=== PATIENT | female | born 1960 ===

== ENCOUNTER 2016-10-19 06:00 | Inpatient (IN) ==
--- NOTE | 2016-10-05 13:21 | EKG Report ---
Stationary ECG Study [facility] Test Date: 10/05/2016 1:20:10 PM Pat Name: RUBI TELLES Department: Room: Gender: F Lawn Caretaker: KRISHAN 10/19/16 SINDHU : 1960 Requested by: Calvin Nixon Order Number: [id number] Reading MD: TEO VALADEZ Intervals [place] Rate: 72 P: 59 TN: 147 QRS: 28 QRSD: 97 T: 59 QT: 387 QTc: 411 Interpretive Statements SINUS RHYTHM Electronically Signed On 10-06-16 14:10:17 CDT by TEO VALADEZ [email or web address]
[~2016-10-19 06:00] MED LIST: LEVOFLOXACIN INJ 100 ML IV ONE
[2016-10-19] MEDS ORDERED: DIAZEPAM 5 MG TABLET ONE (06:34)
[2016-10-19] MEDS ORDERED: FAMOTIDINE 20 MG TABLET ONE (06:34)
[2016-10-19] MEDS ORDERED: DIAZEPAM 5 MG TABLET PO STA (06:36)
[2016-10-19] MEDS ORDERED: FAMOTIDINE 20 MG TABLET PO STA (06:37)
[2016-10-19] MEDS: LACTATED RINGERS 1,000 ML IV SCH (06:53)
[2016-10-19] MEDS ORDERED: ROCURONIUM 100 MG/10 ML VIAL IV ONE (07:11)
[2016-10-19] MEDS ORDERED: ONDANSETRON 4 MG/2 ML VIAL ONE ×2 (07:11→11:06)
[2016-10-19] MEDS ORDERED: LIDOCAINE 2% 5 ML VIAL ONE (07:11)
[2016-10-19] MEDS ORDERED: DEXAMETHASONE 4 MG/1 ML VIAL ONE (07:11)
[2016-10-19] MEDS ORDERED: KETOROLAC 30 MG/1 ML VIAL ONE (07:11)
[2016-10-19] MEDS ORDERED: PROPOFOL 200 MG/20 ML VIAL IV ONE (07:11)
[2016-10-19] MEDS ORDERED: PHENYLEPHRINE 1 MG/10 ML SYRINGE IV ONE (07:11)
[2016-10-19] MEDS ORDERED: BACITRACIN 50,000 UNIT VIAL ONE (09:14)
[2016-10-19] MEDS ORDERED: POLYMYXIN B 500,000 UNIT VIAL ONE (09:14)
--- NOTE | 2016-10-19 10:27 | Operative Note ---
Date of procedure: 10/19/16 Procedure: Preoperative diagnosis: Absent left breast Postoperative diagnosis: Same Procedure: Left breast reconstruction with transverse rectus abdominis muscle flap Surgeon: Andrew Graphic Artist: Dr. David Lincoln Blood loss: 100 cc Anesthesia: General Disposition: Recovery room History of present illness: 56-year-old female with absent left breast secondary to breast cancer. She comes in for definitive reconstruction. Procedure detail: The patient underwent preoperative marking and consent. She was taken to the operating room and underwent general anesthesia. She was prepped and draped in a sterile fashion. Initially a large elliptical incision was made on her lower abdomen including a periumbilical incision. The left side of the abdominal incision area was elevated at the level of the fascia to just cross the midline. The right side of the incision area was elevated to the lateral border of the rectus sheath. A large portion of the elevated tissue was discarded leaving zone 1 of the TRAM flap. The patient then underwent elevation of an upper abdominal skin flap to the level of the xiphoid and costal margin. A rectus muscle fascia incision was made and the rectus muscle was dissected free from the right rectus sheath and the distal end of the rectus muscle was transected. A tunnel was made using electrocautery from the abdominal incision up into the area of the left breast. A large portion of the inferior breast skin was removed. Leaving a large elliptical defect. The tunnel was completed to the left breast. The TRAM flap was then gently moved into the breast position being careful not to kink the pedicle. The flap was trimmed appropriately and inset with a deep layer of 3-0 Monocryl and the skin was closed with a 3-0 Monocryl particular suture. And a drain was placed prior to closure. The drain was secured to the skin with 3-0 nylon suture. The patient was then placed in a sitting position. The rectus sheath was closed with a #2 PDS suture and the inferior portion of the rectus was repaired with a piece of Stratus mesh. The mesh was inset with #2 PDS and the lower right rectus sheath. 2 abdominal drains were placed and secured to the skin with 3-0 nylon suture. Her lower abdominal incision was closed with a deep layer of 2-0 PDS and the skin was closed with a subcuticular 3-0 Monocryl suture. Supporting karen were also placed due to the tightness of the incision. All drains were placed to suction. A small incision was made for exit of the umbilicus. The umbilicus was brought through and secured with a deep layer of 3 -0 Monocryl in the skin of the umbilicus was inset with 4-0 chromic suture. The patient was placed in sterile dressings on her disposition was to the recovery room in stable condition. Surgeon / Physician: Alcides Morales Discharge Plan - Discharge Medications No Action Tamoxifen Tab [Nolvadex] 20 mg PO DAILY Omeprazole 20 mg PO DAILY Glyburide/Metformin HCl [Glyburide-Metformin 2.5-500 mg] 1 each PO BID Carvedilol 12.5 mg PO BID Chlorthalidone 25 mg PO DAILY - Follow Up or Referral - Forms/Instructions
[2016-10-19] MEDS ORDERED: HYDROmorphone PCA 30 MG/30 ML SYRINGE IV ONE (10:48)
[2016-10-19] MEDS ORDERED: NALOXONE 0.4 MG/ML VIAL IV PRN (10:59)
[2016-10-19] MEDS ORDERED: HYDROmorphone PCA 30 MG/30 ML SYRINGE IV SCH (11:00)
[2016-10-19] MEDS: HYDROmorphone 2 MG/1 ML VIAL IV PRN ×4 (11:05→11:33)
[2016-10-19] MEDS ORDERED: HYDROmorphone 2 MG/1 ML VIAL ONE (11:06)
[2016-10-19] MEDS ORDERED: ONDANSETRON 4 MG/2 ML VIAL IV PRN (11:11)
[2016-10-19] MEDS ORDERED: LACTATED RINGERS 1,000 ML IV SCH (11:30)
[2016-10-19] MEDS ORDERED: SEVOFLURANE 1 UNIT/15 MINUTE INH ONE (12:33)
[2016-10-19] MEDS ORDERED: MIDAZOLAM 2 MG/2 ML VIAL ONE (12:33)
[2016-10-19] MEDS ORDERED: LACTATED RINGERS 2,000 ML IV ONE (12:33)
[2016-10-19] MEDS ORDERED: ACETAMINOPHEN 1,000 MG/100 ML VIAL IV ONE (12:33)
[2016-10-19] MEDS: PROMETHAZINE 25 MG/1 ML VIAL IM PRN ×2 (14:44→20:05)
[2016-10-20] MEDS: ONDANSETRON 4 MG/2 ML VIAL IV PRN ×2 (00:43→04:08)
[2016-10-20] MEDS: LACTATED RINGERS 1,000 ML IV SCH ×4 (02:30→16:45)
--- NOTE | 2016-10-20 07:09 | Progress Note ---
Family Medicine PN Sub Interval history: Patient is postoperative day #1 from TRAM breast reconstruction. The flap is healthy. Her drain output is minimal. We will going to advance her diet. 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 We will going to put her on oral [place]. She will ambulate in the membreno today. Overall she is doing very well postoperative day # 1. Exam (Progress Note) - Constitutional Vitals: Period Temp Pulse Resp BP Sys/[place] Pulse Ox Last 24 Hr 97 F-99 F 66-90 14-24 91-151/53-93 94-100
[2016-10-20] MEDS: PROMETHAZINE 25 MG/1 ML VIAL IM PRN ×2 (08:30→16:30)
[2016-10-20] MEDS: AMOXICILLIN/CLAV 875 MG TABLET PO SCH ×2 (09:54→21:12)
[2016-10-21] MEDS: ONDANSETRON 4 MG/2 ML VIAL IV PRN (08:52)
[2016-10-21] MEDS: AMOXICILLIN/CLAV 875 MG TABLET PO SCH ×2 (08:53→20:41)
[2016-10-21] MEDS: PROMETHAZINE 25 MG/1 ML VIAL IM PRN ×2 (08:58→14:03)
[2016-10-21] MEDS: LACTATED RINGERS 1,000 ML IV SCH ×3 (11:48→18:03)
--- NOTE | 2016-10-21 14:52 | Progress Note ---
Family Medicine PN Sub Interval history: Patient postoperative day #2 from TRAM flap breast reconstruction. The patient is doing well. Her abdomen looks very good. Her left breast reconstruction the flap is approximately 99% viable. There is a little dusky area laterally. This should be inconsequential to her long-term outcome. As the flap was quite large and would likely need reduction in the future. The remainder of the flap is soft with no evidence of any vascular compromise whatsoever. Patient is likely to go home Saturday. Exam (Progress Note) - Constitutional Vitals: Period Temp Pulse Resp BP Sys/[place] Pulse Ox Last 24 Hr 98.3 F-100.4 F 93-99 19-24 102-116/53-66 91-96
[2016-10-21] MEDS: PROMETHAZINE 25 MG TABLET PO PRN (20:49)
[2016-10-22] MEDS: AMOXICILLIN/CLAV 875 MG TABLET PO SCH (08:48)
[2016-10-22] MEDS: PROMETHAZINE 25 MG TABLET PO PRN (08:48)
--- NOTE | 2016-10-22 10:23 | Pathology Report from [facility] ---
ACCESSION # : [id number] PATIENT NAME : Saumya Gardiner ORDERING DR : JARRED MANLEY MD CLINICAL HX: Status post mastectomy POST-OP DX: Same SPECIMEN INFO: Left breast tissue GROSS DESCRIPTION: The specimen is received in formalin labeled with the patient 's name "SAUMYA GARDINER" consists of a somewhat curved elliptical-shaped fragment of starr skin and attached fatty subcutaneous tissue measuring 16.8 x 8.7 x 5.5 cm. Cut surfaces are mostly fatty with areas of white fibrous stroma and cystic areas. There is a yellow-white cyst present measuring up to 1.0 cm. Also noted is a hemorrhagic cystic cavity measuring up to 1.5 cm. A few yellow firm areas are noted within the areas of the cyst. No distinct masses are appreciated. Vehicle Check In Clerk sections submitted in cassettes A thru D.Note: Time in formalin is 11:00 AM on Saturday10/19/2016. Time out of formalin is 06 :00 PM on Saturday10/19/2016. DIAGNOSIS FOR SAUMYA GARDINER: LEFT BREAST TISSUE, S/P MASTECTOMY: Dense fibrous connective tissue with foreign body granuloma formation. No evidence of malignancy. SERVICE DATE: 10/20/2016 REPORT DATE: 10/22/2016 PATHOLOGIST: Gianni Fields III, M.D. MTDD
[2016-10-22] MEDS: ONDANSETRON 4 MG/2 ML VIAL IV PRN (11:22)
[2016-10-22 11:48] VITALS: BP 98/63
--- NOTE | 2016-10-22 12:21 | Discharge Summary ---
Specialty Discharge - Follow Up or Referrals Follow up with: Alcides Morales MD [Physician] - Discharge Plan - Discharge Medications No Action Tamoxifen Tab [Nolvadex] 20 mg PO DAILY Omeprazole 20 mg PO DAILY Glyburide/Metformin HCl [Glyburide-Metformin 2.5-500 mg] 1 each PO BID Carvedilol 12.5 mg PO BID Chlorthalidone 25 mg PO DAILY - Follow Up or Referral Follow Up: Alcides Morales MD [Physician] - - Forms/Instructions Exam - Constitutional Vitals: Period Temp Pulse Resp BP Sys/[place] Pulse Ox Last 24 Hr 97.3 F-98.9 F 79-97 18-20 98-115/55-69 92-97 DS: Provider Date of admission: 10/19/16 10:57 Structurally dictating a discharge summary. Patient is postoperative day #3 from TRAM flap breast reconstruction. The patient is doing very well from her surgery. Her only issue is she has a lateral portion of the TRAM flap is somewhat dusky. 80% of the flap is completely healthy. Approximately 5% looks like it may go on to necrosis. And the remainder is congested but has capillary refill. Send her home today with oral pain medicine, instructions on wound care, antinausea medicine. Drain instructions. And I will see her in my office on . Primary care physician: Zechariah Willett MD Attending physician on admission: Alcides Morales MD Discharging clinician: Alcides Morales MD
== END 2016-10-22 13:00 | disposition home or self-care (01) | DRG 585 ==
LOC: N.OR 06:00 → N.SDSINP 06:02 → N.3E 10:57
PROVIDERS: ADMIT Specialist; ATTEND Specialist